=== PATIENT | female | born 1995 | race Caucasian/White ===

== ENCOUNTER 2017-11-06 20:55 | Emergency (ER) | payer OTHER ==
[~2017-11-06] VITALS: Ht 157.5 cm; Wt 88.0 kg
[~2017-11-06 20:55] MED LIST: AMOXICILLIN; AMOXICILLIN875 MG PO; AURALGAN EAR DR14 ML OT; BACTRIM DS TAB1 EACH PO; PERCOCET PO; PYRIDIUM200 MG PO
[2017-11-06 21:20] LABS: ABSOLUTE BASOPHILS 0.1 thou/uL (0.0-0.2); ABSOLUTE LYMPHOCYTES 3.3 thou/uL (0.8-5.3); ABSOLUTE MONOCYTES 1.2 thou/uL (0.0-1.2); ABSOLUTE NEUTROPHILS 7.1 thou/uL (1.6-8.1); BASOPHILS 0.5 %; EOSINOPHILS 0.3 %; HEMATOCRIT 35.3 % (37.0-47.0); HEMOGLOBIN 11.3 gm/dL (12.0-15.0); LYMPHOCYTES 28.3 %; MCV 84.3 fL (80.0-100.0); MONOCYTES 10.3 %; MPV 9.4 fl. (7.2-11.1); NUCLEATED RBCS 0 /100WBC; PLATELET COUNT* 369 thou/uL (150-400); POLYS 60.6 %; RBC 4.18 mil/uL (4.20-5.00); RDW-CV 17.3 % (10.5-14.5); WBC 11.7 thou/uL (4.0-11.0)
[2017-11-06 21:33] LABS: CREATININE 0.7 mg/dL (0.6-1.3)
[2017-11-06 22:05] VITALS: BP 132/88
== END 2017-11-06 22:07 | disposition home or self-care (01) ==
LOC: M.ERS 20:55
PROVIDERS: Nurse Practitioner
DX: N93.8 Other specified abnormal uterine and vaginal bleeding (principal); Z88.7 Allergy status to serum and vaccine